=== PATIENT | female | born 1985 | race African-American/Black ===

== ENCOUNTER 2020-10-03 21:06 | Emergency (ER) | payer MEDICAID ==
[~2020-10-03] VITALS: Ht 167.6 cm; Wt 88.1 kg
[~2020-10-03 21:06] MED LIST: ALBUTEROL; FOLI-43 PO; PREN-88 PO
[2020-10-03 22:11] LABS: BASOPHILS % 0.7 % (0.0-2.0); EOSINOPHILS % 2.9 % (0.0-5.0); HEMATOCRIT. 41.4 % (36.0-48.0); HEMOGLOBIN. 14.3 g/dL (12.0-16.0); LYMPHOCYTES % 21.7 % (20.0-50.0); MEAN CORPUSCULAR HEMOGLOBIN 28.6 pg (28.0-32.0); MEAN CORPUSCULAR VOLUME 82.8 fL (81.0-99.0); MEAN PLATELET VOLUME 7.8 fl (7.4-10.4); MONOCYTES % 13.3 % (2.0-8.0); NEUTROPHILS % 61.4 % (40.0-76.0); PLATELET 250 x1000/uL (130-400); RED CELL DISTRIBUTION WIDTH 14.5 % (11.6-14.6)
[2020-10-03 22:17] LABS: CHLORIDE 103 mEq/L (98-107)
[2020-10-03 22:21] LABS: ETHANOL BLOOD < 10 mg/dL
[2020-10-03 22:55] LABS: CLARITY URINE CLEAR (CLEAR); COLOR URINE YELLOW (YELLOW); KETONES URINE NEGATIVE (NEGATIVE); LEUKOCYTE ESTERASE URINE TRACE (NEGATIVE); NITRITE URINE NEGATIVE (NEGATIVE); OCCULT BLOOD URINE NEGATIVE (NEGATIVE); PROTEIN URINE NEGATIVE (NEGATIVE); SPECIFIC GRAVITY URINE 1.009 (1.005-1.030); UROBILINOGEN URINE 0.2 E.U./dL (0.2-1.0)
[2020-10-03 23:10] LABS: *AMPHETAMINES SCREEN URINE NEGATIVE (NEGATIVE); *BENZODIAZEPINES SCREEN URINE NEGATIVE (NEGATIVE); *COCAINE SCREEN URINE NEGATIVE (NEGATIVE); METHADONE URINE SCREEN NEGATIVE (NEGATIVE); OPIATES URINE SCREEN NEGATIVE (NEGATIVE)
[2020-10-03 23:11] LABS: PHENCYCLIDINE URINE SCREEN NEGATIVE (NEGATIVE)
[2020-10-03 23:12] LABS: *BARBITURATES SCREEN URINE NEGATIVE (NEGATIVE)
[2020-10-03 23:16] LABS: CANNABINOID URINE SCREEN PRESUMTIVE POSITIVE (NEGATIVE)
[2020-10-04 00:30] VITALS: BP 115/72
== END 2020-10-04 00:54 | disposition left against medical advice (07) ==
LOC: ER 21:06
DX: R07.89 Other chest pain (principal); F17.290 Nicotine dependence, other tobacco product, uncomplicated; J45.909 Unspecified asthma, uncomplicated; Z53.29 Procedure and treatment not carried out because of patient's decision for other reasons; Z90.49 Acquired absence of other specified parts of digestive tract
CPT/HCPCS: 36415; 80053; 80305; 80320; 81003; 83880; 84443; 84484; 85025; 93005; 99284; 99406; G0480

== ENCOUNTER 2023-03-26 09:19 | Emergency (ER) | payer MEDICAID, OTHER ==
[~2023-03-26] VITALS: Ht 167.6 cm; Wt 82.0 kg
[~2023-03-26 09:19] MED LIST changes: +ALBU05 NEB; +ALBU90AE INH; +P50 PO
[2023-03-26 09:33] VITALS: O2SAT 99
[2023-03-26] MEDS ORDERED: LIDOCAINE HCL/PF 1% 10 MG/ML 5ML VIAL INFIL ONE (09:45)
[2023-03-26 11:02] VITALS: BP 118/67; PULSE 88; RESP 20; TEMP 98
== END 2023-03-26 11:04 | disposition home or self-care (01) ==
LOC: ER 09:36
DX: L02.31 Cutaneous abscess of buttock (principal); J45.909 Unspecified asthma, uncomplicated; Z90.49 Acquired absence of other specified parts of digestive tract
CPT/HCPCS: 10060; 99282; J3490; Z7610 ×2